=== PATIENT | female | born 1990 | race Asian ===

== ENCOUNTER 2018-03-16 16:43 | Inpatient (IN) | payer SELFPAY ==
[~2018-03-16] VITALS: Ht 160 cm; Wt 63.5 kg
[2018-03-16] MEDS ORDERED: NALBUPHINE 10 MG/ML AMP IVP PRN (16:55)
[2018-03-16] MEDS ORDERED: PROMETHAZINE 25 MG/ML VIAL IVP PRN (16:55)
[2018-03-16] MEDS ORDERED: OXYTOCIN 10 UNITS/ML VIAL IM SCH (16:55)
[2018-03-16] MEDS ORDERED: OXYTOCIN 20 UNITS in LACTATED RINGERS 1,000 ML IV SCH (16:55)
[2018-03-16] MEDS ORDERED: METHYLERGONOVINE 0.2 MG/ML AMP IM PRN (16:55)
[2018-03-16] MEDS ORDERED: CARBOPROST 250 MCG/ML AMP IM PRN (16:55)
[2018-03-16 17:37] LABS: BILIRUBIN,URINE NEGATIVE (NEGATIVE); BLOOD, URINE 3+ (NEGATIVE); COLOR,URINE YELLOW (YELLOW); LEUKOCYTE ESTERASE ,URINE TRACE (NEGATIVE); NITRITE, URINE NEGATIVE (NEGATIVE); UGLUCOSE TRACE (NEGATIVE)
[2018-03-16 17:54] LABS: WHITE BLOOD COUNT (AUTO) 10.1 K/uL (4.8-10.8)
[2018-03-16 17:55] LABS: HEMATOCRIT 36.7 % (36-48); HEMOGLOBIN 11.9 g/dL (12.0-16.0); LYMPHOCYTES % (AUTO) 17.8 % (20.5-51.1); MEAN CORPUSCULAR HEMOGLOBIN 28 pg (27-31); MEAN CORPUSCULAR HGB CONC 33 g/dL (33-37); MEAN CORPUSCULAR VOLUME 84.6 fL (80-94); MONOCYTES % (AUTO) 9.7 % (1.7-9.3); NEUTROPHILS % (AUTO) 71.4 % (42.2-75.2); PLATELET COUNT (AUTO) 207 K/uL (140-450); RED BLOOD CELL COUNT(AUTO) 4.34 MIL/uL (4.20-5.40); RED CELL DISTRIBUTION WIDTH 13.2 % (11.6-13.7)
[2018-03-16 17:56] LABS: BASOPHILS % (AUTO) 0.3 % (0.0-2.0); EOSINOPHILS # (AUTO) 0.1 K/uL (0-0.4); EOSINOPHILS % (AUTO) 0.8 % (0.0-4.0); LYMPHOCYTES # (AUTO) 1.8 K/uL (2.5-16.5); NEUTROPHILS # (AUTO) 7.2 K/uL (1.8-7.7)
[2018-03-16] MEDS: LACTATED RINGERS 1,000 ML IV SCH ×2 (18:04→20:05)
[2018-03-16] MEDS ORDERED: MISOPROSTOL 25 MCG TAB VG PRN (18:10)
[2018-03-16] MEDS ORDERED: MISOPROSTOL 25 MCG TAB VG SCH (18:10)
[2018-03-16 18:19] LABS: APPEARANCE,URINE HAZY (CLEAR)
[2018-03-16] MEDS ORDERED: MISOPROSTOL 25 MCG TAB ONE (18:20)
[2018-03-16 18:22] VITALS: BP 130/85
[2018-03-16 18:28] LABS: RBC,URINE 0-5 (RARE) /HPF (0-5); WBC,URINE 0-5 (RARE) /HPF (0-5)
[2018-03-16] MEDS ORDERED: BUPIVACAINE 0.125%/NS PREMIX 250 ML ONE (19:19)
[2018-03-16] MEDS ORDERED: BUPIVACAINE 0.125%/NS PREMIX 250 ML EPI SCH (19:40)
[2018-03-17] MEDS ORDERED: TERBUTALINE 1 MG/ML VIAL SUBQ SCH (02:05)
[2018-03-17] MEDS ORDERED: TERBUTALINE 1 MG/ML VIAL SUBQ ONE (02:05)
[2018-03-17] MEDS: LACTATED RINGERS 1,000 ML IV SCH ×2 (02:05→03:24)
--- NOTE | 2018-03-17 07:32 | NUR ---
PATIENT HAS BEEN SCREENED AND CATEGORIZED LOW NUTRITION RISK. PATIENT WILL BE SEEN WITHIN 7 DAYS OF ADMISSION. 03/23/[address]
[2018-03-17] MEDS ORDERED: OXYTOCIN 10 UNITS/ML VIAL ONE (09:45)
[2018-03-17] MEDS ORDERED: AMPICILLIN 2,000 MG VIAL ONE (10:01)
[2018-03-17] MEDS ORDERED: CLINDAMYCIN 900 MG/6 ML VIAL IV ONE (10:08)
[2018-03-17] MEDS ORDERED: AMPICILLIN 2,000 MG in NACL 0.9% 100 ML IV SCH (12:00)
[2018-03-17] MEDS ORDERED: CLINDAMYCIN PHOSPHATE IV SCH (13:00)
[2018-03-17] MEDS ORDERED: [UNRECOGNIZED DRUG - OTHER] IV SCH (13:00)
[2018-03-17] MEDS ORDERED: CLINDAMYCIN IV SCH (13:00)
[2018-03-17] MEDS ORDERED: oxyCODONE/APAP 5/325 MG 1 TAB TAB PO PRN (16:00)
[2018-03-17] MEDS ORDERED: BISACODYL 10 MG SUPP RC PRN (16:00)
[2018-03-17] MEDS ORDERED: SODIUM PHOSPHATE 118 ML ENEM RC PRN (16:00)
[2018-03-17] MEDS ORDERED: METHYLERGONOVINE 0.2 MG/ML AMP IM PRN (16:00)
[2018-03-17] MEDS ORDERED: METHYLERGONOVINE 0.2 MG TAB PO PRN (16:00)
[2018-03-17] MEDS ORDERED: BENZOCAINE/MENTHOL 20%-0.5% 60 GM CAN TP PRN (16:00)
[2018-03-17] MEDS ORDERED: OXYTOCIN 10 UNITS/ML VIAL IM PRN (16:00)
[2018-03-17] MEDS ORDERED: TEMAZEPAM 15 MG CAP PO PRN ×2 (16:00)
[2018-03-17] MEDS: HYDROcodone/APAP 5/325 MG 1 TAB TAB PO PRN ×2 (17:19→18:52)
[2018-03-17] MEDS: BISACODYL 5 MG TABEC PO SCH ×2 (20:54→21:24)
[2018-03-17] MEDS: CALCIUM POLYCARBOPHIL 625 MG TAB PO SCH (20:55)
[2018-03-17] MEDS ORDERED: DOCUSATE SOD/SENNA 50/8.6 MG 1 TAB PO SCH (21:00)
[2018-03-17] MEDS ORDERED: SENNA 8.6 MG TAB PO SCH (21:00)
[2018-03-18] MEDS: HYDROcodone/APAP 5/325 MG 1 TAB TAB PO PRN ×2 (00:30→15:44)
[2018-03-18] MEDS ORDERED: IBUPROFEN 800 MG TAB PO PRN (06:40)
[2018-03-18] MEDS ORDERED: IBUPROFEN 400 MG TAB ONE (06:45)
[2018-03-18] MEDS ORDERED: MEASLES, MUMPS, AND RUBELLA 1 VIAL SQVAC PRN (06:50)
[2018-03-18] MEDS: CALCIUM POLYCARBOPHIL 625 MG TAB PO SCH ×2 (09:33→20:56)
[2018-03-18 11:02] LABS: HEMATOCRIT 33.4 % (36-48); HEMOGLOBIN 10.8 g/dL (12.0-16.0)
[2018-03-18] MEDS: BISACODYL 5 MG TABEC PO SCH (20:55)
== END 2018-03-18 23:50 | disposition home or self-care (01) | DRG 775 ==
LOC: MLD 16:43 → MFCC 03-17 17:25
PROVIDERS: ADMIT Obstetrics & Gynecology; ATTEND Obstetrics & Gynecology
PROC: 10D07Z6 Extraction of Products of Conception, Vacuum, Via Natural or Artificial Opening (ICD-10-PCS; principal; 2018-03-17)
PROC: 10907ZC Drainage of Amniotic Fluid, Therapeutic from Products of Conception, Via Natural or Artificial Opening (ICD-10-PCS; 2018-03-17)
PROC: 0W8NXZZ Division of Female Perineum, External Approach (ICD-10-PCS; 2018-03-17)
PROC: 3E0R3BZ Introduction of Anesthetic Agent into Spinal Canal, Percutaneous Approach (ICD-10-PCS; 2018-03-17)
PROC: 00HU33Z Insertion of Infusion Device into Spinal Canal, Percutaneous Approach (ICD-10-PCS; 2018-03-17)
PROC: 3E0234Z Introduction of Serum, Toxoid and Vaccine into Muscle, Percutaneous Approach (ICD-10-PCS; 2018-03-18)
DX: O80 Encounter for full-term uncomplicated delivery (principal); Z37.0 Single live birth; Z3A.39 39 weeks gestation of pregnancy; Z23 Encounter for immunization
CPT/HCPCS: 36415; 51702; 81001; 85018; 85025; 86592; 86886; 86900; 86901; 90707; 90715; J0290; J2590; J3105; J3490; J7120